=== PATIENT | female | born 1955 | race Caucasian/White ===

== ENCOUNTER 2019-11-22 18:01 | Inpatient (IN) | payer MEDICARE, OTHER ==
[~2019-11-22] VITALS: Ht 165.1 cm; Wt 76.9 kg
[~2019-11-22 18:01] MED LIST: AMITRIPTYLINE H25 M1 PO; ASPIRIN 32325 MG/TAB PO; BUSPAR10 MG PO; CALCIUM/MAGNESI1 T18 PO; CULTURELLE10 Billion PO; CYMBALTA 30MG30 MG PO; CYMBALTA 60MG60 MG PO; FLEXERIL 1010 MG/TAB PO; MOBIC15 MG PO; NEURONTIN300 MG/CAP PO; NORVASC 5MG5 MG/TAB PO; PLAVIX 75MG TAB75 MG PO; PRAVACHOL 40MG40 MG PO; PRIL40 PO; RESTORIL 1515 MG/CAP PO; TENORMIN 5050 MG/TAB PO; ULTRAM 50MG TAB50 MG PO; XANAX .25M0.25 MG/TA PO; calcium PO
[2019-11-22 19:04] LABS: BASO # 0.1 (0.0-0.2); BASO % 0.7 % (0.0-2.0); EOS # 0.2 (0.0-0.7); GRAN % 65.4 % (42.2-75.2); LYMPH # 1.9 (1.2-3.4); LYMPH % 24.8 % (20.0-51.0); MEAN CELL VOLUME 78 fl (80.0-100.0); MEAN CORPUSCULAR HGB CONC 30 g/dl (33.0-37.0); MEAN PLATELET VOLUME 10.8 fl (7.4-10.4); MONO # 0.4 (0.1-0.6); MONO % 5.8 % (1.7-9.3); PLATELET COUNT 242 K/mm3 (130-400); RED BLOOD COUNT 3.55 M/mm3 (4.10-5.30); REDCELL DISTRIBUTION WIDTH-CV 16.8 % (11.5-14.5)
[2019-11-22 19:06] LABS: HEMATOCRIT 27.7 % (37.0-47.0); HEMOGLOBIN 8.4 g/dl (12.5-16.0); MEAN CORPUSCULAR HEMOGLOBIN 24 pg (27.0-31.0)
[2019-11-22 19:08] LABS: INR 3.5 (0.8-3.0); PROTHROMBIN TIME 39.6 SECONDS (9.7-12.8)
[2019-11-22 19:10] LABS: ALBUMIN 3.7 gm/dL (3.5-5.0); BILIRUBIN,TOTAL 0.4 mg/dL (0.0-1.0); CALCIUM 8.9 mg/dL (8.4-10.2); CREATININE, serum 1.23 (0.52-1.25); POTASSIUM 4.4 mmol/L (3.4-5.0); TOTAL PROTEIN 6.9 gm/dL (6.4-8.2)
[2019-11-22 19:11] LABS: PARTIAL THROMBOPLASTIN TIME 46.4 SECONDS (26.0-37.0)
[2019-11-22] MEDS ORDERED: LOPRESSOR 550 MG/TAB PO (19:17)
[2019-11-22] MEDS ORDERED: K-TAB10 PO (19:18)
[2019-11-22] MEDS ORDERED: PERCOCET 325 MG1 TA2 PO ×2 (19:19→21:02)
[2019-11-22] MEDS ORDERED: NITROSTAT0.4 MG/TAB PO (19:21)
[2019-11-22] MEDS ORDERED: COUMADIN 22.5 MG/TAB PO (19:23)
[2019-11-22] MEDS ORDERED: COUMADIN 5MG5 MG/TAB PO (19:23)
--- NOTE | 2019-11-22 20:50 | NUR ---
Dr. Sorenson gave the following phone orders...hold plavix, coumadin and asprin. Clear liquids until 6AM 11/22 then NPO. Order lab of PTT/INR and H&H for 0600. Get consent to read "Left below the knee amputation". Read back verified. Medications held and labs ordered by Hospitalist for 0500.
[2019-11-22 20:56] VITALS: BP 125/75; PULSE 97; TEMP 98.6
[2019-11-22] MEDS ORDERED: PROTONIX 40MG T40 MG PO (21:03)
[2019-11-23 00:32] VITALS: BP 133/75; PULSE 98; TEMP 98.4
[2019-11-23 03:57] VITALS: BP 149/69; PULSE 97; TEMP 98.1
--- NOTE | 2019-11-23 04:00 | NUR ---
Patient has been resting in bed with eyes closed this shift. Patient has states she feels what she is going throught is "like a dream". Patient has asked for something for anxiety in response to signing consent for her below the knee amputation on 11/22. On arrival from the ED the off going nurse mentioned the patient did not want to go home with her ... ED nurse stated she would make her own note about that incident. When completing admission B the patient denied being fearful or threatened by anyone. She did state that sometimes they (she and her spouse) don't have money for food. Patient has bruising to the left side of her body she states are from falls. Patient brought her home meds into the hospital, these were taken to pharmacy.
[2019-11-23 07:12] LABS: BASO # 0.1 (0.0-0.2); BASO % 1.1 % (0.0-2.0); EOS # 0.3 (0.0-0.7); EOS % 4.9 % (0-4.0); GRAN # 3.2 (1.4-6.5); GRAN % 60.5 % (42.2-75.2); LYMPH # 1.5 (1.2-3.4); MEAN CELL VOLUME 78 fl (80.0-100.0); MEAN CORPUSCULAR HGB CONC 30 g/dl (33.0-37.0); MEAN PLATELET VOLUME 10.8 fl (7.4-10.4); MONO # 0.3 (0.1-0.6); MONO % 5.3 % (1.7-9.3); PLATELET COUNT 235 K/mm3 (130-400); REDCELL DISTRIBUTION WIDTH-CV 17.1 % (11.5-14.5)
[2019-11-23 07:13] LABS: HEMATOCRIT 28.7 % (37.0-47.0); HEMOGLOBIN 8.6 g/dl (12.5-16.0); INR 3.6 (0.8-3.0); MEAN CORPUSCULAR HEMOGLOBIN 23 pg (27.0-31.0); PROTHROMBIN TIME 40.7 SECONDS (9.7-12.8)
[2019-11-23 07:19] VITALS: BP 142/65; PULSE 109; TEMP 98.1
--- NOTE | 2019-11-23 07:30 | NUR ---
Patient in bed stated pain /10 to LLE. Medications given per orders. Assessment complete. Discoloration noted to BLE. IV fluids infusing per orders. Denies further needs at this time.
[2019-11-23 07:35] LABS: CALCIUM 8.6 mg/dL (8.4-10.2); CREATININE, serum 0.8 (0.52-1.25); POTASSIUM 3.6 mmol/L (3.4-5.0)
--- NOTE | 2019-11-23 08:00 | NUR ---
Contacted Hospitalist, patient INR 3.6, patient also states dilaudid is not helping with pain would like to try someting else for pain or increase pain meds.
--- NOTE | 2019-11-23 10:41 | NUR ---
Vp Respiratory met with patient to discuss discharge planning. SW received a consult on patient indicating Inpatient Rehab. Patient lives in [place], [place] with her Evan (ph#[phone]) [address] Anne Fitzgerald for primary care. [facility] with [facility] difficulties. Patient reports she has [employer] as a secondary for insurance. SW provided copy of card to Ivon, Financial Counselor. Patient does not have any DME currently but reports she will need a walker upon discharge. Patient states she has had more difficulty getting around for the last four years but denies needing any assistance normally with ADLS. Patient is interested in post acute rehab upon discharge. SW discussed Inpatient Rehab based on consult. Patient is agreeable to IPR screen however reports her first preference is [facility] [place] and second preference would be [facility]. Patient states she is agreeable to IPR if her first two preferences cannot accept. SW contacted Shagufta, IPR Director to give referral. BROOK left a message for Geri at [facility] and faxed referral. BROOK then contacted Katerin at [facility] and faxed referral. BROOK advised Katerin that they are second preference. BROOK contacted patient's Evan and left a message. SW to continue to follow.
[2019-11-23 11:29] VITALS: BP 173/70; PULSE 118; TEMP 98
--- NOTE | 2019-11-23 12:33 | NUR ---
First visit from the infrastructure developer. No needs right now.
[2019-11-23 14:48] LABS: IRON,SERUM 40 ug/dL (35-150)
--- NOTE | 2019-11-23 14:49 | NUR ---
Cafe Server spoke with Geri at [facility] who advised they can likely accept. BROOK provided patient's secondary insurance information to Geri. BROOK to continue to follow.
[2019-11-23 14:58] LABS: TOTAL IRON BINDING CAPACITY 397 ug/dL (265-497)
[2019-11-23 15:43] VITALS: BP 133/51; PULSE 110; TEMP 98.9
--- NOTE | 2019-11-23 17:03 | NUR ---
Patient in bed sleeping
[2019-11-23 18:11] LABS: RETIC # 0.05 M/mm3 (0.02-0.16); RETIC % 1.3 % (0.5-3.52)
[2019-11-23 18:13] LABS: INR 2.6 (0.8-3.0); PROTHROMBIN TIME 28.8 SECONDS (9.7-12.8)
--- NOTE | 2019-11-23 18:54 | NUR ---
Patient has done well throughout the day. Minimal needs. Reported off to night baker.
--- NOTE | 2019-11-23 19:43 | NUR ---
Assisted to bathroom with gait belt and walker. Pt hops on right foot and does well. Voids and back to bed. Left foot discolored and cool and tender to touch. Is alert and oriented x4. SL to right AC without redness or swelling.
--- NOTE | 2019-11-23 19:51 | NUR ---
DILAUDID GIVEN FOR PAIN TO LEFT FOOT 10/10, PT TEARFUL. ELEVATED LEFT LEG ON PILLOWS. HS MEDS GIVEN AT THIS TIME WELL. WILL MONITOR FOR CHANGES.
[2019-11-23 20:03] VITALS: BP 120/59; PULSE 110; TEMP 99
[2019-11-24] VITALS (13 sets, daily range): BP systolic 93–145; BP diastolic 59–88; PULSE 93–111; TEMP 97.6–98.9
--- NOTE | 2019-11-24 00:30 | NUR ---
Resting in bed, no concerns offered at this time.
--- NOTE | 2019-11-24 06:22 | NUR ---
UP TO BATHROOM WITH ASSIST. HAS BEEN NPO FOR POSSIBLE SURGERY TODAY.
[2019-11-24 06:55] LABS: BASO # 0.1 (0.0-0.2); BASO % 0.9 % (0.0-2.0); EOS # 0.3 (0.0-0.7); EOS % 4.6 % (0-4.0); GRAN # 3.1 (1.4-6.5); GRAN % 54.9 % (42.2-75.2); LYMPH # 1.8 (1.2-3.4); MEAN CELL VOLUME 79 fl (80.0-100.0); MEAN CORPUSCULAR HGB CONC 29 g/dl (33.0-37.0); MEAN PLATELET VOLUME 11.8 fl (7.4-10.4); MONO # 0.4 (0.1-0.6); MONO % 7.4 % (1.7-9.3); PLATELET COUNT 201 K/mm3 (130-400); RED BLOOD COUNT 3.63 M/mm3 (4.10-5.30); REDCELL DISTRIBUTION WIDTH-CV 17.3 % (11.5-14.5)
[2019-11-24 06:58] LABS: INR 1.6 (0.8-3.0); PROTHROMBIN TIME 17.4 SECONDS (9.7-12.8)
[2019-11-24 06:58] LABS: HEMATOCRIT 28.7 % (37.0-47.0); HEMOGLOBIN 8.4 g/dl (12.5-16.0); MEAN CORPUSCULAR HEMOGLOBIN 23 pg (27.0-31.0)
[2019-11-24 07:07] LABS: CALCIUM 8.8 mg/dL (8.4-10.2); CREATININE, serum 0.65 (0.52-1.25); POTASSIUM 3.8 mmol/L (3.4-5.0)
--- NOTE | 2019-11-24 08:40 | NUR ---
Patient resting in bed at this time, up with x1 assist to the bathroom where she was continent of urine. Patient c/o pain in her left foot, administered PRN pain medication per order. Left foot is pale and cold, cap refill >5 seconds, pedal pulse not palpable. Patient is alert and oriented, answers questions appropriately. Patient denies further needs at this time, call light within reach.
--- NOTE | 2019-11-24 15:30 | NUR ---
Patient resting in bed at this time, rouses easily. Patient c/o anxiety, administered PRN xanax per order. Pre op arrived to collect the patient for scheduled, surgery, patient left the floor via bed.
--- NOTE | 2019-11-24 19:40 | NUR ---
RETURNED FROM SURGERY PER BED. IS SLEEPING, SNORING BUT WILL AWAKEN WHEN SPOKEN TO. IVF INFUSING TO RIGHT AC WITHOUT REDNESS OR SWELLING. LEFT STUMP ELEVATED ON PILLOW, MARIA DE JESUS D/I.
--- NOTE | 2019-11-25 00:20 | NUR ---
PT AWAKE, ALERT AND ORIENTED. TAKES HS MEDS AT THIS TIME. DENIES PAIN.
--- NOTE | 2019-11-25 03:00 | NUR ---
Attempts to use bedpan, unsuccessful. Does not want to get up to BSC.
[2019-11-25 04:11] VITALS: BP 116/60; PULSE 89; TEMP 97.9
--- NOTE | 2019-11-25 04:40 | NUR ---
Pt bladder werlppg=130oq straight cathed for 600cc of cheryl urine. Pt tolerated without problem.
[2019-11-25 07:36] LABS: GRAN # 5.8 (1.4-6.5); GRAN % 88.7 % (42.2-75.2); LYMPH # 0.7 (1.2-3.4); LYMPH % 10.1 % (20.0-51.0); MEAN CELL VOLUME 79 fl (80.0-100.0); MEAN CORPUSCULAR HGB CONC 30 g/dl (33.0-37.0); MEAN PLATELET VOLUME 11.3 fl (7.4-10.4); MONO # 0.1 (0.1-0.6); MONO % 0.9 % (1.7-9.3); PLATELET COUNT 229 K/mm3 (130-400); RED BLOOD COUNT 3.13 M/mm3 (4.10-5.30); REDCELL DISTRIBUTION WIDTH-CV 17.2 % (11.5-14.5)
[2019-11-25 07:38] VITALS: BP 149/68; PULSE 101; TEMP 98.2
[2019-11-25 07:41] LABS: CALCIUM 8.5 mg/dL (8.4-10.2); CREATININE, serum 0.63 (0.52-1.25); POTASSIUM 3.8 mmol/L (3.4-5.0)
[2019-11-25 07:57] LABS: HEMATOCRIT 24.7 % (37.0-47.0); HEMOGLOBIN 7.4 g/dl (12.5-16.0); MEAN CORPUSCULAR HEMOGLOBIN 24 pg (27.0-31.0)
[2019-11-25 08:07] LABS: INR 1.4 (0.8-3.0); PROTHROMBIN TIME 16.2 SECONDS (9.7-12.8)
--- NOTE | 2019-11-25 08:31 | NUR ---
Patient resting in bed. Alert & oriented. Reporting phantom pain to Lle. Requesting Percocet. One tab roxicodone given & ice pack to stump. elevation to Lle. She did well with breakfast, denies nausea. Hofeful for discharge, informed her it most likely will not be today. Left sump dressing CDi. Ivf to Rac. We discussed her horses. Will monitor
[2019-11-25 11:07] VITALS: BP 130/59; PULSE 96; TEMP 98.6
--- NOTE | 2019-11-25 11:38 | NUR ---
Patient 2 person assist to bedside commode. Very emotional, tearful & crying. Reviewed with her the strict visitor rules. Patient is unsteady on her foot. Needing assistance to balance. Trying to void on the commode
[2019-11-25 16:00] VITALS: BP 138/64; PULSE 53; TEMP 98.3
--- NOTE | 2019-11-25 16:36 | NUR ---
Patient has voided on the commode x2. Gaitbelt & walker used. Patient spouse visited this afternoon, it was emotional. Patient now rating her pain 11/10. Continues to have phantom pain, reports her foot that is no longer there itches. She requested oxicodone & xanax for her nerve pain. Medication per orders & request. She is aware of plan of care. Will monitor.
--- NOTE | 2019-11-25 18:45 | NUR ---
Patient tearful, crying -phantom pain is intense. rating pain 11/10. No relief from oxicodone or xanax. Dose of Iv morphine given. She is going to try & eat dinner. Will report off to night nurse
--- NOTE | 2019-11-25 19:44 | NUR ---
PT TEARFUL, REPORTS LEFT STUMP PAIN AND FEELS PHANTOM TOE PAIN ON THE LEFT. MEDICATED WITH NORCO 7.5MG 2 TABS AT THIS TIME. UP TO BSC, ONLY VOIDS 50CC. BACK TO BED WITH ASSIST OF ONE AND WALKER.
--- NOTE | 2019-11-25 20:08 | NUR ---
MEDICATED WITH HS MEDS INCLUDING PHENERGAN 25MG PO FOR NAUSEA AND MORPHINE 2MG IVP FOR CONTINUED TEARFUL PHANTOM PAIN TO LEFT STUMP. TRIES TO REPOSITION TO RT SIDE WITH STUMP ELEVATED.
[2019-11-25 20:50] VITALS: BP 154/69; PULSE 124; TEMP 98.2
--- NOTE | 2019-11-25 21:05 | NUR ---
PT REMAINS TEARFUL, ASSISTED TO BSC, VOIDS 300CC OF [place] URINE. BACK TO BED. GIVEN TRAMADOL 100MG AND OXYCODONE 10MG PO NOW FOR PAIN 04/05 TO STUMP. SL INTACT TO RIGHT AC. HR TACHYCARDIC AT THIS TIME.
--- NOTE | 2019-11-25 22:30 | NUR ---
SPOKE WITH RENEE MEJIA FOR NEW ORDERS FOR PAIN MEDS. NEW ORDERS FOR MORPHINE 4-6MG IV EVERY 2HRS PRN PAIN. MAY ORDER MUSIC INSTRUCTOR MORPHINE IF PAIN NOT RESOLVED.
--- NOTE | 2019-11-25 22:45 | NUR ---
MEDICATED WITH MORPHINE 4MG IVP FOR RT STUMP PAIN 04/05.
[2019-11-25 23:23] VITALS: BP 160/81; PULSE 123; TEMP 98.3
--- NOTE | 2019-11-25 23:30 | NUR ---
UP TO [facility], VOIDS AND BACK TO BED. PAIN HAS LESSENED.
--- NOTE | 2019-11-26 02:00 | NUR ---
PT RESTING QUIETLY, SNORING SOFTLY.
--- NOTE | 2019-11-26 03:45 | NUR ---
PT AWAKE, RATES PAIN 10/10 TO LEFT STUMP. ASSISTED TO BSC, COULD NOT VOID, BACK TO BED. MEDICATED WITH MORPHINE 4MG IVP AND NORCO 7.5MG 2 TABS AT THIS TIME.
[2019-11-26 03:49] VITALS: BP 135/75; PULSE 125; TEMP 98.4
--- NOTE | 2019-11-26 05:48 | NUR ---
PT RESTING IN BED, DOES NOT APPEAR TO BE IN PAIN AT THIS TIME. WAS ABLE TO USE BSC AND VOID.
[2019-11-26 06:59] LABS: INR 1.1 (0.8-3.0); PROTHROMBIN TIME 12.8 SECONDS (9.7-12.8)
[2019-11-26 07:14] LABS: CALCIUM 8.9 mg/dL (8.4-10.2); CREATININE, serum 0.67 (0.52-1.25); POTASSIUM 3.6 mmol/L (3.4-5.0)
[2019-11-26 07:25] VITALS: BP 146/82; PULSE 115; TEMP 98.2
[2019-11-26 07:42] LABS: BASO % 0.3 % (0.0-2.0); EOS % 0.1 % (0-4.0); GRAN # 7.8 (1.4-6.5); GRAN % 76.1 % (42.2-75.2); HEMATOCRIT 26.2 % (37.0-47.0); HEMOGLOBIN 7.9 g/dl (12.5-16.0); LYMPH # 1.6 (1.2-3.4); LYMPH % 15.1 % (20.0-51.0); MEAN CELL VOLUME 79 fl (80.0-100.0); MEAN CORPUSCULAR HEMOGLOBIN 24 pg (27.0-31.0); MEAN CORPUSCULAR HGB CONC 30 g/dl (33.0-37.0); MEAN PLATELET VOLUME 11.4 fl (7.4-10.4); MONO # 0.8 (0.1-0.6); MONO % 7.9 % (1.7-9.3); PLATELET COUNT 235 K/mm3 (130-400); REDCELL DISTRIBUTION WIDTH-CV 17.8 % (11.5-14.5)
--- NOTE | 2019-11-26 07:57 | NUR ---
PATIENT EKG DONE, ATRIAL FLUTTER, TRIED TO CALL DR. ALEGRIA NO ANSWER, TOLD ATTENDING NURSE AND SHOWED HER EKG.
--- NOTE | 2019-11-26 08:42 | NUR ---
Lying in bed with eyes closed. Opens eyes when name called out. Patient having minimal pain at this time. Dressing to left BKA CDI, was changed this morning by ortho. Patient says that she is tired and people keep coming in and waking her up. Denies further needs at this time.
--- NOTE | 2019-11-26 09:23 | NUR ---
PT in room with the patient. Patient now rating pain 9/10 in left leg. Administered [place] as prescribed. Patient denies further needs at this time.
--- NOTE | 2019-11-26 10:17 | NUR ---
chemistry technical officer in room. Asked patient if she was having pain and to rate on scale and patient closes eyes and goes to sleep. Woke patient and asked to rate pain on scale. Patient continues to rate 9/10.
--- NOTE | 2019-11-26 11:11 | NUR ---
Patient rates pain 9/10 and requests pain medication. Administered Ultram as prescribed. Patient pain in right and left knees, describes as sharp pain. Patient denies further needs at this time.
[2019-11-26 11:22] VITALS: BP 154/83; PULSE 99; TEMP 97.6
--- NOTE | 2019-11-26 12:09 | NUR ---
Patient refuses to eat, says that she does not feel well. Explain that with her taking pain medication she should try to eat something. Offered other alternatives and patient refuses and says that she does not want anything to eat at this time. Pain at 7-8/10 in both knees. Denies further needs at this time.
--- NOTE | 2019-11-26 13:16 | NUR ---
Up to BSC, patient tearful and says that she cannot do it (meaning transfers). Reassurance and encouragement provided and it was explained that working with PT will help. Patient rating pain 10/10 and requests pain medication. Administered [place] as prescribed. Patient denies further needs at this time.
[2019-11-26 15:38] VITALS: BP 149/89; PULSE 88; TEMP 98.6
--- NOTE | 2019-11-26 16:21 | NUR ---
Auto Technician Mechanic contacted Geri at [facility] and Katerin at [facility] and faxed referrals. Geri advised that they are able to accept, patient would just need to sign some paperwork prior to admit. Geri advised she will email paperwork to BROOK for patient to sign. BROOK met with patient who confirmed [facility] is still her first preference. BROOK contacted patient's , Evan to provide udpate. SW to continue to follow.
--- NOTE | 2019-11-26 17:19 | NUR ---
Patient not eating dinner tray. Patient says that she does not have an appetite today and she does not want to eat. Offered other options to the patient and she declines. Explained importance of nutrition and healing. Patient says that she does not want to eat at this time. Reviewed with the patient starting at 1800 tonight she cannot have caffeine to prepare for her test tomorrow and she will not be allowed anything by mouth after midnight. Patient verbalizes understanding. Denies any additional needs at this time.
--- NOTE | 2019-11-26 18:26 | NUR ---
Patient having increasing pain in knees. Requests pain medication. Administered [place] as prescribed.
[2019-11-26 19:51] VITALS: BP 150/80; PULSE 91; TEMP 99.1
--- NOTE | 2019-11-26 21:00 | NUR ---
Pt. sitting up in bed at this time. Pt. is A&OX3, assessment complete. INT to rt. ac patent. Pt. assisted to bedside commode with 1 A and walker. Pt. fairly steady on foot at this time. Pt. dressing CDI. Pt. reports pain to LLE at a 5 on pain scale, Gave meds per orders. Pt. denies further needs, call light within reach.
[2019-11-27] VITALS (12 sets, daily range): BP systolic 98–169; BP diastolic 63–98; PULSE 71–119; TEMP 97.4–98.7
[2019-11-27 07:02] LABS: BASO % 0.4 % (0.0-2.0); EOS % 0.4 % (0-4.0); GRAN # 7.5 (1.4-6.5); GRAN % 73.8 % (42.2-75.2); LYMPH # 1.6 (1.2-3.4); LYMPH % 16.2 % (20.0-51.0); MEAN CELL VOLUME 77 fl (80.0-100.0); MEAN CORPUSCULAR HGB CONC 30 g/dl (33.0-37.0); MONO # 0.9 (0.1-0.6); MONO % 8.7 % (1.7-9.3); PLATELET COUNT 255 K/mm3 (130-400); RED BLOOD COUNT 3.59 M/mm3 (4.10-5.30); REDCELL DISTRIBUTION WIDTH-CV 18.2 % (11.5-14.5)
[2019-11-27 07:13] LABS: CALCIUM 9.4 mg/dL (8.4-10.2); CREATININE, serum 0.6 (0.52-1.25); POTASSIUM 3.7 mmol/L (3.4-5.0)
[2019-11-27 07:13] LABS: HEMATOCRIT 27.8 % (37.0-47.0); HEMOGLOBIN 8.4 g/dl (12.5-16.0); MEAN CORPUSCULAR HEMOGLOBIN 23 pg (27.0-31.0)
[2019-11-27 08:14] LABS: INR 1.2 (0.8-3.0); PROTHROMBIN TIME 13.3 SECONDS (9.7-12.8)
--- NOTE | 2019-11-27 11:51 | NUR ---
Jewelry Consultant spoke with Geri at [facility] who advised if patient discharges, patient would need to be in their facility by 1400. BROOK collaborated with JOLLY Miranda who advised that they will look at tomorrow for discharge. BROOK contacted Geri again to provide udpate. BROOK also faxed clinical updates. Geri emailed BROOK paperwork that needs to be completed by patient prior to admit. BROOK provided this paperwork to patient along with Geri's phone number. Patient states she has her cell phone and can call Geri on that if needed. SW to continue to follow.
--- NOTE | 2019-11-27 21:00 | NUR ---
Pt. sitting up in bed at this time. Pt. is A&OX3, assessment complete. INT to rt. ac patent. Dressing to lt. BKA CDI. Pt. reports pain to LLE at a 8 on pain scale, gave pain meds. Pt. assiste to and from the BSC with 1A and walker. Pt. repositioned for comfoter in bed. Pt. denies further needs, call light within reach.
[2019-11-28 00:16] VITALS: BP 135/65; PULSE 79; TEMP 98.4
--- NOTE | 2019-11-28 04:25 | NUR ---
Pt. called out and reported that she fell. Upon entering pt. room, Pt. was sitting on the floor by the bed. Pt. had no visable injuries but reported that her rt. hip was hurting. Pt. assisted back to the bed with 4 assist. Pt. was able to move the rt. leg. When asked what happened, Pt. stated "I tried to turn over and slid of the bed". grounds crew supervisor and Dr. Davila notified. Vitals taken, see mar. New orders received.
[2019-11-28 04:39] VITALS: BP 146/93; PULSE 97; TEMP 98.9
--- NOTE | 2019-11-28 05:23 | NUR ---
Pt. asked again where she was hurting and at this time reported her lt. hip hurt not her right. Then when biosolids management technician came in she reported to him that her rt hip hurt. Will xray bilaterally.
[2019-11-28 07:09] LABS: BASO % 0.4 % (0.0-2.0); EOS # 0.1 (0.0-0.7); EOS % 1.2 % (0-4.0); GRAN % 77.3 % (42.2-75.2); HEMATOCRIT 25.4 % (37.0-47.0); HEMOGLOBIN 7.7 g/dl (12.5-16.0); LYMPH # 1.2 (1.2-3.4); LYMPH % 12.8 % (20.0-51.0); MEAN CELL VOLUME 78 fl (80.0-100.0); MEAN CORPUSCULAR HEMOGLOBIN 24 pg (27.0-31.0); MEAN CORPUSCULAR HGB CONC 30 g/dl (33.0-37.0); MONO # 0.7 (0.1-0.6); PLATELET COUNT 270 K/mm3 (130-400); RED BLOOD COUNT 3.26 M/mm3 (4.10-5.30); REDCELL DISTRIBUTION WIDTH-CV 18.2 % (11.5-14.5)
[2019-11-28 07:10] LABS: INR 1.3 (0.8-3.0); PROTHROMBIN TIME 14.9 SECONDS (9.7-12.8)
[2019-11-28 07:21] LABS: CALCIUM 9.3 mg/dL (8.4-10.2); CREATININE, serum 0.6 (0.52-1.25); POTASSIUM 3.7 mmol/L (3.4-5.0)
[2019-11-28 08:18] VITALS: BP 139/65; PULSE 96; TEMP 98.9
--- NOTE | 2019-11-28 09:15 | NUR ---
Dr Gupta here to see patient.
--- NOTE | 2019-11-28 09:30 | NUR ---
Patient alert and oriented, answers questions appropriately. See assessment. RLE with dressing CDI, changed by Dr Sorenson this a.m. FWB. Transfer with assist x1, gait belt and FWW. Patient c/o pain 10/10, but easily distracted and starts to cry about not being able to talk to her son. Instructed on post op exercises. No other c/o at this time.
[2019-11-28] MEDS ORDERED: SENNA-S 50 MG-81 TAB PO (10:53)
[2019-11-28] MEDS ORDERED: ASPIRIN 32325 MG/TAB PO (10:59)
[2019-11-28] MEDS ORDERED: ROXICODONE 55 MG/TAB PO (11:00)
--- NOTE | 2019-11-28 11:08 | NUR ---
Medical Examiner attended clinical rounds with the team. Per notes from this morning, patient has appeared to be confused. Hospitalist asked orientation questions and patient was able to state her name, , the current year, and where she was at correctly. Hospitalist advised patient is ready for discharge today. BROOK coordinated with Geri, Medical Examiner at [facility] and set transport time for around noon. BROOK provided transport time to RN, Pricila. BROOK also spoke with Pricila about [facility]'s concern about patient's pain while transporting to [place]. BROOK contacted patient's , Evan to provide update and transport time. SW then met with patient to review plan. Patient states her father lives at [facility] and she cannot wait to see him. Patient is tearful but states she is in agreement with discharge to [facility]. BROOK read IM form aloud to patient who verbalized understanding and provided verbal consent as signature. BROOK placed form in chart and provided copy to patient. BROOK informed patient [facility] would be picking her up around noon. Patient became tearful and stated she thought transport would occur this evening. BROOK advised [facility] would like to have her there before this evening. BROOK faxed discharge orders to Geri at [facility]. No additional needs at this time.
[2019-11-28 12:46] VITALS: BP 139/65; PULSE 96; TEMP 98.9
--- NOTE | 2019-11-28 13:01 | NUR ---
Report called to Kate at [facility], patient discharged via wheelchair/auto per transportation staff to [facility] at 1300.
== END 2019-11-28 13:00 | DRG 240 ==
LOC: COL.ER 18:01 → SURG 18:57
PROVIDERS: Emergency Medicine; Hospitalist; Nurse Practitioner Family; Orthopaedic Surgery; Physician Assistant; ADMIT Student in an Organized Health Care Education/Training Program
PROC: 0Y6J0Z3 Detachment at Left Lower Leg, Low, Open Approach (ICD-10-PCS; principal; 2019-11-24 17:00)
DX: I73.9 Peripheral vascular disease, unspecified (principal); I48.92 Unspecified atrial flutter; L97.529 Non-pressure chronic ulcer of other part of left foot with unspecified severity; G89.29 Other chronic pain; E78.5 Hyperlipidemia, unspecified; I10 Essential (primary) hypertension; J44.9 Chronic obstructive pulmonary disease, unspecified; Z79.1 Long term (current) use of non-steroidal anti-inflammatories (NSAID); D50.9 Iron deficiency anemia, unspecified; F41.9 Anxiety disorder, unspecified; F17.210 Nicotine dependence, cigarettes, uncomplicated; K21.9 Gastro-esophageal reflux disease without esophagitis; Z95.820 Peripheral vascular angioplasty status with implants and grafts; Z90.49 Acquired absence of other specified parts of digestive tract; Z90.710 Acquired absence of both cervix and uterus; Z79.01 Long term (current) use of anticoagulants; Z79.891 Long term (current) use of opiate analgesic; Z79.02 Long term (current) use of antithrombotics/antiplatelets; Z79.82 Long term (current) use of aspirin
CPT/HCPCS: 99223-AI; 99232-AI; 99233-AI; 99239; A9284; A9500; J0690; J1100; J1170; J2060; J2250; J2270; J2405; J2704; J2785; J3010; J7030